=== PATIENT | female | born 2000 | race African-American/Black ===

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

== ENCOUNTER 2022-12-10 15:21 | Observation (INO) | payer OTHER ==
[~2022-12-10] VITALS: Ht 167.6 cm; Wt 136.1 kg
== END 2022-12-10 18:20 | disposition home or self-care (01) ==
LOC: 8 EST LDRP 15:21
PROVIDERS: ADMIT Obstetrics & Gynecology; ATTEND Obstetrics & Gynecology
DX: O48.0 Post-term pregnancy (principal); Z3A.40 40 weeks gestation of pregnancy
CPT/HCPCS: 59025; 76818; 76805; G0378 ×2; 96360; 96361; 96365; 99281

== ENCOUNTER 2022-12-13 09:12 | Inpatient (IN) | payer OTHER ==
[~2022-12-13] VITALS: Ht 167.6 cm; Wt 136.1 kg
[2022-12-13] MEDS ORDERED: CARBOPROST TROMETHAMINE 250 MCG/ML AMPUL IM PRN (09:45)
[2022-12-13] MEDS ORDERED: NALOXONE HCL 0.4 MG/ML 1ML VIAL IM PRN (09:45)
[2022-12-13] MEDS ORDERED: LIDOCAINE HCL 1% 20ML VIAL (Pyxis) INJ INFIL SCH (09:45)
[2022-12-13] MEDS ORDERED: METHYLERGONOVINE MALEATE 0.2 MG/ML IM PRN (09:45)
[2022-12-13] MEDS ORDERED: MISOPROSTOL 200MCG TABLET RC SCH (10:00)
[2022-12-13] MEDS ORDERED: PENICILLIN G POTASSIUM 5 MMU in DEXT 5% WATER 100 ML IV SCH (11:00)
[2022-12-13] MEDS: MISOPROSTOL 25 MCG TABLET VG PRN ×3 (13:38→22:05)
[2022-12-13 16:38] LABS: BASOPHILS % 0.3 % (0.0-2.0); EOSINOPHILS % 0.3 % (0.0-5.0); HEMATOCRIT. 36.6 % (36.0-48.0); HEMOGLOBIN. 12.2 g/dL (12.0-16.0); MEAN CORPUSCULAR HEMOGLOBIN 26.9 pg (28.0-32.0); MEAN CORPUSCULAR HGB CONC 33.4 g/dL (31.0-37.0); MEAN CORPUSCULAR VOLUME 80.6 fL (81.0-99.0); MEAN PLATELET VOLUME 7.9 fl (7.4-10.4); MONOCYTES % 7.3 % (2.0-8.0); NEUTROPHILS % 67.1 % (40.0-76.0); PLATELET 237 x1000/uL (130-400); RED BLOOD CELL COUNT 4.54 mill/uL (4.2-5.4); RED CELL DISTRIBUTION WIDTH 16.2 % (11.6-14.6); WHITE BLOOD COUNT 8.6 x1000/uL (4.5-11.0)
[2022-12-13 16:39] LABS: *AMPHETAMINES SCREEN URINE NEGATIVE (NEGATIVE); *BARBITURATES SCREEN URINE NEGATIVE (NEGATIVE); *BENZODIAZEPINES SCREEN URINE NEGATIVE (NEGATIVE); *COCAINE SCREEN URINE NEGATIVE (NEGATIVE); CANNABINOID URINE SCREEN NEGATIVE (NEGATIVE); ECSTASY MDMA SCREEN URINE NEGATIVE (NEGATIVE); METHADONE URINE SCREEN NEGATIVE (NEGATIVE); OPIATES URINE SCREEN NEGATIVE (NEGATIVE); PHENCYCLIDINE URINE SCREEN NEGATIVE (NEGATIVE)
[2022-12-13 16:46] LABS: INR 0.9; PARTIAL THROMBOPLASTIN TIME 28.2 sec (23.4-31.0); PROTHROMBIN TIME 10.2 sec (9.6-11.0)
[2022-12-13 17:00] LABS: CLARITY URINE CLOUDY (CLEAR); COLOR URINE YELLOW (YELLOW); GLUCOSE URINE NEGATIVE (NEGATIVE); KETONES URINE NEGATIVE (NEGATIVE); LEUKOCYTE ESTERASE URINE 3+ (NEGATIVE); NITRITE URINE NEGATIVE (NEGATIVE); OCCULT BLOOD URINE NEGATIVE (NEGATIVE); PH URINE 6.5 (4.5-8.0); PROTEIN URINE NEGATIVE (NEGATIVE); SPECIFIC GRAVITY URINE 1.012 (1.005-1.030); UROBILINOGEN URINE 0.2 E.U./dL (0.2-1.0)
[2022-12-13 17:15] LABS: BACTERIA URINE 2+; SQUAMOUS EPITHELIAL CELL URINE 2+ /lpf (RARE/1+)
[2022-12-13 17:16] LABS: RBC URINE 0-2 /hpf (0-2)
[2022-12-13 17:17] LABS: RAPID HIV SCREEN NEGATIVE (NEGATIVE)
[2022-12-13 17:35] LABS: HEPATITIS B SURFACE ANTIGEN NEGATIVE; RUBELLA IGG 95.6 IU/mL (4.99-10)
[2022-12-14] MEDS: LACTATED RINGERS 1,000 ML IV SCH ×4 (01:07→10:29)
[2022-12-14] MEDS: MISOPROSTOL 25 MCG TABLET VG PRN (03:04)
[2022-12-14] MEDS ORDERED: MEPERIDINE HCL/PF 50MG/ML CPJ IM ONE (05:45)
[2022-12-14] MEDS: PENICILLIN G POTASSIUM 2.5 MMU in DEXTROSE 5% WATER 50 ML IV SCH ×2 (06:01→12:12)
[2022-12-14] MEDS ORDERED: ROPIVACAINE HCL/PF EPIDURAL 200 ML EPI ONE ×2 (08:41→09:00)
[2022-12-14] MEDS ORDERED: ROPIVACAINE HCL/PF EPIDURAL 200 ML EP SCH (08:45)
[2022-12-14] MEDS: OXYTOCIN 30 UNITS/500ML NS PMX 500 ML IV SCH ×2 (17:10→19:13)
[2022-12-14] MEDS ORDERED: OXYTOCIN 30 UNITS/500ML NS PMX 500 ML IV SCH (17:15)
[2022-12-14] MEDS ORDERED: BISACODYL 10MG SUPP PR PRN (17:15)
[2022-12-14] MEDS ORDERED: ACETAMINOPHEN WITH CODEINE 300/30MG TABLET PO PRN (17:15)
[2022-12-14] MEDS ORDERED: DIPHENHYDRAMINE 25MG CAPSULE PO PRN (17:15)
[2022-12-14] MEDS ORDERED: IBUPROFEN 400MG TABLET PO PRN (17:15)
[2022-12-14] MEDS ORDERED: BENZOCAINE/LANOLIN/ALOE VERA SPRAY TOP PRN (17:15)
[2022-12-14] MEDS ORDERED: HEMORRHOIDAL SUPP PR PRN (17:15)
[2022-12-14] MEDS ORDERED: GLYCERIN/WITCH HAZEL LEAF MEDICATED PAD TOP PRN (17:15)
[2022-12-14] MEDS ORDERED: LANOLIN OINT 7GM TUBE TOP PRN (17:15)
[2022-12-14] MEDS ORDERED: RHO(D) IMMUNE GLOBULIN 300 MCG/SYR IM PRN (17:15)
[2022-12-14] MEDS ORDERED: IBUPROFEN 800MG TABLET PO PRN (17:15)
[2022-12-14] MEDS ORDERED: SIMETHICONE 80MG TABLET CHEW PO SCH (21:00)
[2022-12-14] MEDS ORDERED: MAGNESIUM/ALUMINUM HYDROXIDE/SIMETHICONE 30ML UDC PO SCH (21:00)
[2022-12-14] MEDS ORDERED: DOCUSATE SODIUM 100MG CAPSULE PO SCH (21:00)
[2022-12-14 21:25] VITALS: BP 117/72; PULSE 91; RESP 18; TEMP 98.8; O2SAT 98
[2022-12-15 04:00] VITALS: BP_SYST 110; BP_SYST 116; BP_DIAS 51; BP_DIAS 70; PULSE 84; PULSE 94; RESP 18; TEMP 98.4; TEMP 98.6
[2022-12-15] MEDS ORDERED: FERROUS SULFATE 325MG TABLET PO SCH (07:30)
[2022-12-15 08:00] VITALS: BP 99/70; PULSE 73; RESP 18; TEMP 98.4; O2SAT 99
[2022-12-15 08:49] LABS: BASOPHILS % 0.4 % (0.0-2.0); EOSINOPHILS % 0.4 % (0.0-5.0); HEMATOCRIT. 35.5 % (36.0-48.0); HEMOGLOBIN. 11.7 g/dL (12.0-16.0); MEAN CORPUSCULAR HEMOGLOBIN 26.8 pg (28.0-32.0); MEAN CORPUSCULAR HGB CONC 33.1 g/dL (31.0-37.0); MEAN CORPUSCULAR VOLUME 80.9 fL (81.0-99.0); MEAN PLATELET VOLUME 7.7 fl (7.4-10.4); MONOCYTES % 6.2 % (2.0-8.0); PLATELET 186 x1000/uL (130-400); RED BLOOD CELL COUNT 4.39 mill/uL (4.2-5.4); RED CELL DISTRIBUTION WIDTH 16.6 % (11.6-14.6); WHITE BLOOD COUNT 12.5 x1000/uL (4.5-11.0)
[2022-12-15 08:59] VITALS: BP 110/70; PULSE 84; RESP 18
[2022-12-15] MEDS ORDERED: PRENATAL VIT/FE FUMARATE/FA TABLET PO SCH (09:00)
[2022-12-15] MEDS ORDERED: IBUP-2030 MT (14:46)
== END 2022-12-15 17:30 | disposition home or self-care (01) | DRG 560 ==
LOC: 8 EST LDRP 09:12 → OBSVTOIN 09:12 → 8EST 12-14 21:30
PROVIDERS: ADMIT Obstetrics & Gynecology; ATTEND Obstetrics & Gynecology
PROC: 10E0XZZ Delivery of Products of Conception, External Approach (ICD-10-PCS; principal; 2022-12-14)
PROC: 3E0R3BZ Introduction of Anesthetic Agent into Spinal Canal, Percutaneous Approach (ICD-10-PCS; 2022-12-14)
PROC: 00HU33Z Insertion of Infusion Device into Spinal Canal, Percutaneous Approach (ICD-10-PCS; 2022-12-14)
DX: O48.0 Post-term pregnancy (principal); Z37.0 Single live birth; Z3A.40 40 weeks gestation of pregnancy
CPT/HCPCS: 36415; 80305; 81003; 85025; 86592; 86703; 86762; 86850; 86900; 87340; 99281; J2175; J2540; J2795; J3490; J7060; J7120; J2590